=== PATIENT | female | born 1995 | race Two or more races ===

== ENCOUNTER 2022-07-26 20:07 | Emergency (ER) | payer SELFPAY ==
[2022-07-26 20:16] VITALS: BP 119/72; PULSE 91; RESP 19; TEMP 98.6; BMI 26.5
[2022-07-26] MEDS ORDERED: ACETAMINOPHEN 325 MG TABLET (FP) PO ONE (21:46)
[2022-07-26] MEDS ORDERED: ACETAMINOPHEN 325 MG TABLET (FP) ONE (21:51)
== END 2022-07-26 22:13 | disposition home or self-care (01) ==
LOC: JERFT 20:07
DX: S93.402A Sprain of unspecified ligament of left ankle, initial encounter (principal); X50.0XXA Overexertion from strenuous movement or load, initial encounter; Y93.67 Activity, basketball
CPT/HCPCS: 73610-TC-LT-FY; 99283-25